=== PATIENT | female | born 1995 | race Caucasian/White ===

== ENCOUNTER 2018-06-15 12:20 | Day surgery (SDC) | payer OTHER ==
[2018-06-15] MEDS: LACTATED RINGER'S 1,000 ML IV (14:49)
[2018-06-15] MEDS ORDERED: HYDROmorphONE 1 MG/5 ML IV SYRINGE IV ×3 (15:30)
[2018-06-15] MEDS ORDERED: PROCHLORPERAZINE 10 MG INJ IV (15:30)
[2018-06-15] MEDS ORDERED: ONDANSETRON 4 MG INJ IV (15:30)
[2018-06-15] MEDS ORDERED: FENTAnyl 50 MCG/ML VIAL IV ×3 (15:30)
[2018-06-15] MEDS ORDERED: DIPHENHYDRAMINE 50 MG INJ IV (15:30)
[2018-06-15] MEDS ORDERED: MEPERIDINE 25 MG INJ IV (15:30)
[2018-06-15] MEDS ORDERED: PROPOFOL 20 ML (15:33)
[2018-06-15] MEDS ORDERED: LIDOCAINE 2% (SDV) 5 ML INJ (15:33)
[2018-06-15] MEDS ORDERED: MIDAZOLAM 1 MG/ML 2 ML INJ ×2 (15:35→16:41)
[2018-06-15] MEDS ORDERED: FENTAnyl 50 MCG/ML VIAL (15:36)
[2018-06-15] MEDS ORDERED: FAMOTIDINE 20 MG INJ (15:58)
[2018-06-15] MEDS ORDERED: DEXAMETHASONE 4 MG/ML 1 ML INJ (15:58)
[2018-06-15] MEDS ORDERED: ONDANSETRON 4 MG INJ (15:58)
[2018-06-15] MEDS ORDERED: PHENYLephrine (100 MCG/ML) 5ML SYG (15:59)
[2018-06-15] MEDS ORDERED: ACETAMINOPHEN 1000MG/100ML IV 100 ML (16:00)
[2018-06-15] MEDS ORDERED: SUCCINYLCHOLINE CHLORIDE 100 MG/5 ML SYG IV (16:06)
[2018-06-15] MEDS ORDERED: METOCLOPRAMIDE 10 MG INJ IV (17:00)
[2018-06-15] MEDS ORDERED: MIDAZOLAM 1 MG/ML 2 ML INJ IV (17:00)
[2018-06-15] MEDS: OXYCODONE/ACETAMINOPHEN (5/325) TAB PO (18:16)
== END 2018-06-15 18:55 | disposition home or self-care (01) ==
LOC: SDS 12:20
DX: J35.01 Chronic tonsillitis (principal)
CPT/HCPCS: 42826; 84703; 88304